=== PATIENT | male | born 1990 | race Caucasian/White ===

== ENCOUNTER 2024-07-30 13:14 | Outpatient (AMB) | payer OTHER, SELFPAY ==
--- NOTE | 2024-07-30 13:17 | MHC.OFFVIS ---
Vital Signs 07/30/24 13:20 Height 5 ft 8 in Weight 169 lb 12.095 oz BMI 25.8 BP 118/77 Blood Pressure Location Lt brachial Position Sitting Pulse 77 Intake Visit Reasons: Ulcerative Colitis Intake Note: Surinder presents in the office as a new patient for Ulcerative Coitis. CC: He states he is not actively having a flare up at this time. He has seen several GI specialists in the past. Just trying to get established at this time. [place] Required: No Allergies NSAIDS (Non-Steroidal Anti-Inflamma Adverse Reaction (Mild, Verified 07/30/24 13:20) Unknown HPI Comments Details: 34 y.o M with known hx of UC who is here to establish care. Pt reports had [place] out of [place] for a while but returned a year ago. Had a flare up summer 2023 where he had to go to [facility] ws Rxed steroids and was referred back to [facility]. However, is looking to change providers due to difference in approach. Currently not having any abd pain, no diarrhea, no blood in stool. Sometimes urgency. No night time sx at present, but did have before in summer. Fam hx: No IBD or CRC hx in first degree relatives. ibd hx: Age/year: in Initial sx: blood in stool, diarrhea Prev meds: Lialda 4g/day, rowasa enema Current meds: Evinature 2 caps BID Last endoscopy: Summer 2023 colonoscopy (Dr Shabazz) [facility] Surgical History Hx of colonoscopy Review of Systems Const All systems reviewed & are unremarkable except as noted in HPI and below Physical Exam Vital Signs: Last Vital Signs Pulse 77 07/30/24 13:20 BP 118/77 07/30/24 13:20 BMI result Body Mass Index 25.8 No apparent distress Nonicteric Abdomen soft, nondistended Alert and oriented x3, normal gait Assessment & Plan Assessment & Plan (1) Ulcerative colitis: Code(s): K51.90 - Ulcerative colitis, unspecified, without complications Category: Medical Plan Ulcerative colitis. Per patient report, previously was ulcerative colitis of sigmoid and rectum. On most recent colonoscopy, has extended. Will obtain records. Currently, patient appears to be in clinical remission, but was educated that may not automatically translate into endoscopic remission. Will obtain biomarkers as proxy to inflammation. We will also obtain baseline labs, including hepatitis-B serology and T spot. As long as he stays in remission, no objection to him continuing evinature. However, if he has 2 or more flares per year on this therapy, he is aware that we will be starting therapy such as 5 ASA or biologic at that time. Other longitudinal care, such as nutrient screening, bone health, and sun safety also discussed. Follow-up in 3 months Orders: Orders Complete Blood Count no Diff Today K5 - Ulcerative colitis, unspecified, without complications Comprehensive Met. Panel Today - Ulcerative colitis, unspecified, without complications C Reactive Protein Today K5 - Ulcerative colitis, unspecified, without complications Hepatitis B Core Antibody Today K5 - Ulcerative colitis, unspecified, without complications Hepatitis B Surface Antigen Today K5 - Ulcerative colitis, unspecified, without complications Transglutaminase IgA Today K5 - Ulcerative colitis, unspecified, without complications TSH reflex Free T4 Today K5 - Ulcerative colitis, unspecified, without complications Vitamin D 25-OH Total Today K5 - Ulcerative colitis, unspecified, without complications Ferritin Today K5 - Ulcerative colitis, unspecified, without complications IRON PROFILE Today K5 - Ulcerative colitis, unspecified, without complications Calprotectin, Fecal Today K5 - Ulcerative colitis, unspecified, without complications Hepatitis A IgG Today K5 - Ulcerative colitis, unspecified, without complications Hepatitis B Surface Antibody Today K5. - Ulcerative colitis, unspecified, without complications Hepatitis C Antibody Today K5 - Ulcerative colitis, unspecified, without complications Immunoglobulin A Today - Ulcerative colitis, unspecified, without complications T Spot TB Today K5 - Ulcerative colitis, unspecified, without complications Vitamin B12 and Folate Today K5 - Ulcerative colitis, unspecified, without complications Coding Level of Care Code New Pt Level 4 (05213) Complex EM visit Add On G2211 Diagnoses Ulcerative colitis K5
[2024-07-30 13:20] VITALS: BP 118/77; PULSE 77; BMI 25.8
== END 2024-07-30 14:38 | disposition home or self-care (01) ==
PROVIDERS: PCP Nurse Practitioner Family; Visit Provider Internal Medicine
DX: K51.90 Ulcerative colitis, unspecified, without complications (principal)
CPT/HCPCS: 99204

== ENCOUNTER 2024-07-30 13:14 | Outpatient (REF) | payer OTHER, SELFPAY | END 2024-07-30 13:15 | disposition home or self-care (01) | LOC: HO.LAB 13:14 | PROVIDERS: PCP Nurse Practitioner Family; Visit Provider Internal Medicine | DX: Z13.89 Encounter for screening for other disorder (principal) ==

== ENCOUNTER 2024-08-27 08:55 | Outpatient (REF) | payer OTHER, SELFPAY ==
[2024-08-27 09:30] LABS: Hematocrit 42.5 % (42.0-52.0); Hemoglobin 14.7 g/dl (14.0-18.0); Mean Corpuscular HGB Conc 34.6 g/dl (31.0-36.0); Mean Corpuscular Hemoglobin 29.9 pg (27.0-33.0); Mean Corpuscular Volume 86.4 fL (80.0-98.0); Mean Platelet Volume 10.6 fL (9.4-12.4); Platelet Count 197 X10*3/uL (160-400); Red Blood Count 4.92 X10*6/uL (4.60-5.80); Red Cell Distribution Width 11.9 % (11.0-16.0); White Blood Count 3.6 X10*3/uL (4.8-10.8)
[2024-08-27 09:52] LABS: Alanine Aminotransferase 34 U/L (0-40); Albumin Level 4.7 g/dL (3.5-5.0); Alkaline Phosphatase 70 U/L (39-117); Anion Gap 12 (12-20); Aspartate Amino Transferase 29 U/L (5-37); Bilirubin Total 0.4 mg/dL (0.0-1.0); Blood Urea Nitrogen 16 mg/dL (9-16); C Reactive Protein < 0.10 mg/dL (< or = 0.50); Calcium 9.8 mg/dL (8.4-10.2); Carbon Dioxide 30 mmol/L (22-29); Chloride 104 mmol/L (96-108); Estimated Glomerular Filt Rate > 60; Glucose Random 84 mg/dL (60-115); Iron 75 mcg/dL (45-160); Percent Iron Saturation 22 % (15-50); Potassium 4.5 mmol/L (3.3-5.1); Sodium 141 mmol/L (135-145); Total Iron Binding Capacity 335 mcg/dL (228-428); Total Protein 7.7 g/dL (6.5-8.0); Unsaturated Iron Binding 260 ug/dL
[2024-08-27 10:06] LABS: Ferritin 53 ng/mL (20-250); TSH reflex Free T4 0.99 uIU/mL (0.32-4.0); Vitamin D 25-OH Total 42.2 ng/mL (>30)
[2024-08-27 10:09] LABS: HBS Num1 183.22 mIU/mL (0-7.99); HBsAGNum1 0.45 S/CO (0.00-0.99); Hepatitis B Core Antibody Nonreactive (Nonreactive); Hepatitis B Surface Antigen Negative (Negative); ~HepC Num1 0.32 S/CO (0.00-0.79); ~Hepatitis B Surface Antibody REACTIVE (Nonreactive); ~Hepatitis C Antibody Nonreactive (Nonreactive)
[2024-08-27 10:10] LABS: Hepatitis A Antibody IgG REACTIVE (Nonreactive); ~Hepatitis A Antibody IgG 7.12 S/CO (0.00-0.99)
[2024-08-27 10:22] LABS: Folate 14.9 ng/mL (> or = 4.0); Vitamin B12 361 pg/mL (200-900)
[2024-08-29 01:59] LABS: Immunoglobulin A 140 mg/dL (47-310)
[2024-08-29 17:18] LABS: Transglutaminase IgA <1.0 U/mL
[2024-08-30 07:52] LABS: TS Negative Control Passed; TS Panel A 0; TS Panel B 1; TS Positive Control Passed; TSpotTB Negative (Negative)
[2024-09-06 02:04] LABS: Calprotectin, Fecal 88 mcg/g
== END 2024-08-27 08:56 | disposition home or self-care (01) ==
LOC: HO.LAB 08:55
PROVIDERS: PCP Nurse Practitioner Family; Visit Provider Internal Medicine
DX: K51.90 Ulcerative colitis, unspecified, without complications (principal)
CPT/HCPCS: 36415; 80053; 82306; 82607; 82728; 82746; 82784; 83540; 83993; 84443; 85027; 86140; 86364; 86481; 86704; 86706; 86708; 86803; 87340

== ENCOUNTER → 2024-10-29 09:12 | Outpatient (BNVA) | payer OTHER, SELFPAY | PROVIDERS: PCP Nurse Practitioner Family; Visit Provider Internal Medicine ==